=== PATIENT | male | born 1990 | race Caucasian/White ===

== ENCOUNTER 2018-03-11 00:42 | Emergency (ER) | payer MEDICAID ==
[~2018-03-11] VITALS: Ht 170.2 cm; Wt 81.0 kg
[2018-03-11 06:11] LABS: BASOPHILS % 0.6 % (0.0-2.0); EOSINOPHILS % 2.2 % (0.0-5.0); HEMATOCRIT. 42.3 % (42.0-52.0); MEAN CORPUSCULAR HEMOGLOBIN 26.1 pg (28.0-32.0); MEAN CORPUSCULAR VOLUME 78.6 fL (80.0-94.0); MEAN PLATELET VOLUME 7.7 fl (7.4-10.4); MONOCYTES % 4.4 % (2.0-8.0); NEUTROPHILS % 66.8 % (40.0-76.0); PLATELET 214 x1000/uL (130-400); RED BLOOD CELL COUNT 5.38 mill/uL (4.7-6.1); RED CELL DISTRIBUTION WIDTH 15.1 % (11.6-14.6)
[2018-03-11 06:17] LABS: CHLORIDE 107 mEq/L (98-107)
[2018-03-11 06:26] LABS: ETHANOL BLOOD < 10 mg/dL
[2018-03-11 07:34] LABS: *AMPHETAMINES SCREEN URINE NEGATIVE (NEGATIVE); *BARBITURATES SCREEN URINE NEGATIVE (NEGATIVE); CANNABINOID URINE SCREEN NEGATIVE (NEGATIVE); OPIATES URINE SCREEN NEGATIVE (NEGATIVE); PHENCYCLIDINE URINE SCREEN NEGATIVE (NEGATIVE)
[2018-03-11 07:35] LABS: *BENZODIAZEPINES SCREEN URINE NEGATIVE (NEGATIVE); *COCAINE SCREEN URINE NEGATIVE (NEGATIVE); METHADONE URINE SCREEN NEGATIVE (NEGATIVE)
[2018-03-11 10:33] VITALS: BP 123/58
== END 2018-03-11 14:10 | disposition home or self-care (01) ==
LOC: ER 01:01
DX: R45.851 Suicidal ideations (principal); F43.20 Adjustment disorder, unspecified; J45.909 Unspecified asthma, uncomplicated; F31.9 Bipolar disorder, unspecified; I10 Essential (primary) hypertension; F20.9 Schizophrenia, unspecified; Z90.49 Acquired absence of other specified parts of digestive tract
CPT/HCPCS: 36415; 80048; 80305; 80307; 80329; 85025; 99284; G0482

== ENCOUNTER 2019-11-03 19:30 | Emergency (ER) | payer MEDICAID ==
[~2019-11-03] VITALS: Ht 177.8 cm; Wt 82.0 kg
[2019-11-03 22:29] LABS: BASOPHILS % 0.4 % (0.0-2.0); EOSINOPHILS % 3.8 % (0.0-5.0); HEMATOCRIT. 42.7 % (42.0-52.0); HEMOGLOBIN. 14.9 g/dL (14.0-18.0); LYMPHOCYTES % 18.9 % (20.0-50.0); MEAN CORPUSCULAR HEMOGLOBIN 27.4 pg (28.0-32.0); MEAN CORPUSCULAR VOLUME 78.2 fL (80.0-94.0); MEAN PLATELET VOLUME 7.7 fl (7.4-10.4); MONOCYTES % 5.1 % (2.0-8.0); NEUTROPHILS % 71.8 % (40.0-76.0); PLATELET 234 x1000/uL (130-400); RED BLOOD CELL COUNT 5.46 mill/uL (4.7-6.1); RED CELL DISTRIBUTION WIDTH 15.5 % (11.6-14.6)
[2019-11-03 22:32] LABS: CHLORIDE 108 mEq/L (98-107)
[2019-11-03 22:33] LABS: CLARITY URINE CLEAR (CLEAR); COLOR URINE YELLOW (YELLOW); KETONES URINE NEGATIVE (NEGATIVE); LEUKOCYTE ESTERASE URINE NEGATIVE (NEGATIVE); NITRITE URINE NEGATIVE (NEGATIVE); OCCULT BLOOD URINE NEGATIVE (NEGATIVE); PROTEIN URINE NEGATIVE (NEGATIVE); SPECIFIC GRAVITY URINE 1.018 (1.005-1.030)
[2019-11-03 22:36] LABS: ETHANOL BLOOD < 10 mg/dL
[2019-11-03 22:43] LABS: *COCAINE SCREEN URINE NEGATIVE (NEGATIVE)
[2019-11-03 22:44] LABS: *AMPHETAMINES SCREEN URINE NEGATIVE (NEGATIVE); *BARBITURATES SCREEN URINE NEGATIVE (NEGATIVE); *BENZODIAZEPINES SCREEN URINE NEGATIVE (NEGATIVE); CANNABINOID URINE SCREEN NEGATIVE (NEGATIVE); METHADONE URINE SCREEN NEGATIVE (NEGATIVE); OPIATES URINE SCREEN NEGATIVE (NEGATIVE); PHENCYCLIDINE URINE SCREEN NEGATIVE (NEGATIVE)
[2019-11-03] MEDS ORDERED: OLANZAPINE 5MG TABLET ODT PO ONE (23:00)
[2019-11-03] MEDS ORDERED: LORAZEPAM 2MG/ML CPJ IM PRN (23:15)
[2019-11-04] MEDS ORDERED: HALOPERIDOL LACTATE 5MG/ML VIAL IM ONE (07:45)
[2019-11-04] MEDS ORDERED: LORAZEPAM 2MG/ML CPJ IM ONE ×2 (07:45→18:30)
[2019-11-04] MEDS ORDERED: LORAZEPAM 1MG TABLET PO ONE (15:00)
[2019-11-04] MEDS ORDERED: ALBUTEROL 6.7GM HFA INHALER ORI ONE (18:00)
[2019-11-04 20:36] VITALS: BP 129/75
[2019-11-04] MEDS ORDERED: QUETIAPINE FUMARATE 50MG TABLET PO SCH (21:00)
[2019-11-05] MEDS ORDERED: BUSPIRONE HCL 5MG TABLET PO SCH (09:00)
== END 2019-11-04 20:37 ==
LOC: ER 19:30
DX: F20.9 Schizophrenia, unspecified (principal); R45.851 Suicidal ideations; R45.850 Homicidal ideations; J45.909 Unspecified asthma, uncomplicated; I10 Essential (primary) hypertension; Z75.1 Person awaiting admission to adequate facility elsewhere; Z91.14 Patient's other noncompliance with medication regimen; Z90.49 Acquired absence of other specified parts of digestive tract
CPT/HCPCS: 36415; 80053; 80305; 80320; 81003; 85025; 94640; 96372; 99285; J2060; G0480

== ENCOUNTER 2020-05-25 00:30 | Emergency (ER) | payer MEDICAID ==
[~2020-05-25] VITALS: Ht 172.7 cm; Wt 82.0 kg
[2020-05-25 01:32] LABS: BASOPHILS % 0.7 % (0.0-2.0); EOSINOPHILS % 5.4 % (0.0-5.0); HEMATOCRIT. 43.9 % (42.0-52.0); HEMOGLOBIN. 14.9 g/dL (14.0-18.0); LYMPHOCYTES % 19.1 % (20.0-50.0); MEAN CORPUSCULAR VOLUME 76.5 fL (80.0-94.0); MEAN PLATELET VOLUME 7.3 fl (7.4-10.4); MONOCYTES % 5.4 % (2.0-8.0); NEUTROPHILS % 69.4 % (40.0-76.0); PLATELET 233 x1000/uL (130-400); RED BLOOD CELL COUNT 5.73 mill/uL (4.7-6.1); RED CELL DISTRIBUTION WIDTH 15.3 % (11.6-14.6)
[2020-05-25 01:36] LABS: CHLORIDE 109 mEq/L (98-107)
[2020-05-25 01:41] LABS: ETHANOL BLOOD < 10 mg/dL
[2020-05-25 02:22] LABS: CLARITY URINE CLEAR (CLEAR); COLOR URINE YELLOW (YELLOW); KETONES URINE NEGATIVE (NEGATIVE); LEUKOCYTE ESTERASE URINE NEGATIVE (NEGATIVE); NITRITE URINE NEGATIVE (NEGATIVE); OCCULT BLOOD URINE NEGATIVE (NEGATIVE); PH URINE 5.5 (4.5-8.0); PROTEIN URINE NEGATIVE (NEGATIVE); SPECIFIC GRAVITY URINE 1.024 (1.005-1.030)
[2020-05-25 02:34] LABS: *AMPHETAMINES SCREEN URINE NEGATIVE (NEGATIVE); *BARBITURATES SCREEN URINE NEGATIVE (NEGATIVE); *BENZODIAZEPINES SCREEN URINE NEGATIVE (NEGATIVE); *COCAINE SCREEN URINE NEGATIVE (NEGATIVE); CANNABINOID URINE SCREEN NEGATIVE (NEGATIVE); METHADONE URINE SCREEN NEGATIVE (NEGATIVE); OPIATES URINE SCREEN NEGATIVE (NEGATIVE); PHENCYCLIDINE URINE SCREEN NEGATIVE (NEGATIVE)
[2020-05-25] MEDS ORDERED: IPRATROPIUM/ALBUTEROL 0.5-3(2.5)MG/3ML NEB HHN ONE (04:15)
[2020-05-25] MEDS ORDERED: RISPERIDONE 1MG TABLET PO SCH (09:00)
[2020-05-25 11:00] VITALS: BP 111/60
== END 2020-05-25 11:28 | disposition home or self-care (01) ==
LOC: ER 00:30
DX: R45.851 Suicidal ideations (principal); F20.9 Schizophrenia, unspecified; F31.9 Bipolar disorder, unspecified; F15.10 Other stimulant abuse, uncomplicated; I10 Essential (primary) hypertension; J45.909 Unspecified asthma, uncomplicated; Z90.49 Acquired absence of other specified parts of digestive tract; Z20.822 Contact with and (suspected) exposure to COVID-19; R05 Cough
CPT/HCPCS: 36415; 80053; 80305; 80307; 80320; 80329; 81003; 85025; 93005; 94640; 99285; C9803; U0003; Z7610; A4315; G0480

== ENCOUNTER 2022-05-21 08:37 | Emergency (ER) | payer MEDICAID ==
[~2022-05-21] VITALS: Ht 175.3 cm; Wt 91.0 kg
[2022-05-21 11:48] LABS: BASOPHILS % 0.5 % (0.0-2.0); EOSINOPHILS % 1.1 % (0.0-5.0); HEMATOCRIT. 41.5 % (42.0-52.0); HEMOGLOBIN. 13.8 g/dL (14.0-18.0); LYMPHOCYTES % 15.3 % (20.0-50.0); MEAN CORPUSCULAR VOLUME 78.4 fL (80.0-94.0); MEAN PLATELET VOLUME 7.4 fl (7.4-10.4); MONOCYTES % 5.6 % (2.0-8.0); NEUTROPHILS % 77.5 % (40.0-76.0); PLATELET 252 x1000/uL (130-400); RED BLOOD CELL COUNT 5.29 mill/uL (4.7-6.1); RED CELL DISTRIBUTION WIDTH 15.9 % (11.6-14.6)
[2022-05-21 11:51] LABS: CLARITY URINE CLEAR (CLEAR); COLOR URINE YELLOW (YELLOW); KETONES URINE NEGATIVE (NEGATIVE); LEUKOCYTE ESTERASE URINE 1+ (NEGATIVE); NITRITE URINE NEGATIVE (NEGATIVE); OCCULT BLOOD URINE NEGATIVE (NEGATIVE); PH URINE 6.5 (4.5-8.0); PROTEIN URINE NEGATIVE (NEGATIVE); SPECIFIC GRAVITY URINE 1.019 (1.005-1.030)
[2022-05-21 11:51] LABS: CHLORIDE 111 mEq/L (98-107)
[2022-05-21 12:00] LABS: ETHANOL BLOOD < 10 mg/dL
[2022-05-21 12:06] LABS: *AMPHETAMINES SCREEN URINE NEGATIVE (NEGATIVE); *BARBITURATES SCREEN URINE NEGATIVE (NEGATIVE); *BENZODIAZEPINES SCREEN URINE NEGATIVE (NEGATIVE); *COCAINE SCREEN URINE NEGATIVE (NEGATIVE); CANNABINOID URINE SCREEN NEGATIVE (NEGATIVE); METHADONE URINE SCREEN NEGATIVE (NEGATIVE); OPIATES URINE SCREEN NEGATIVE (NEGATIVE); PHENCYCLIDINE URINE SCREEN NEGATIVE (NEGATIVE)
[2022-05-21] MEDS: SERTRALINE HCL 100MG TABLET PO SCH (13:00)
[2022-05-21] MEDS ORDERED: QUETIAPINE FUMARATE 25MG TABLET PO SCH (21:00)
[2022-05-22] MEDS: SERTRALINE HCL 100MG TABLET PO SCH (08:52)
[2022-05-22 09:43] VITALS: BP 107/67
== END 2022-05-22 10:18 | disposition home or self-care (01) ==
LOC: ER 08:37
DX: R45.851 Suicidal ideations (principal); R45.850 Homicidal ideations; J45.909 Unspecified asthma, uncomplicated; F31.9 Bipolar disorder, unspecified; I10 Essential (primary) hypertension; F20.9 Schizophrenia, unspecified; Z90.49 Acquired absence of other specified parts of digestive tract; F12.10 Cannabis abuse, uncomplicated; Z20.822 Contact with and (suspected) exposure to COVID-19
CPT/HCPCS: 36415; 71045; 80053; 80305; 80320; 81003; 85025; 87426; 99285; C9803; G0480

== ENCOUNTER 2023-01-30 12:32 | Emergency (ER) | payer MEDICAID, OTHER ==
[~2023-01-30] VITALS: Ht 177.8 cm; Wt 82.0 kg
[2023-01-30 12:37] VITALS: BP 126/78; PULSE 103; RESP 16; TEMP 98.3; O2SAT 96
[2023-01-30] MEDS ORDERED: SERTRALINE HCL 100MG TABLET PO SCH (15:00)
[2023-01-30] MEDS ORDERED: ALBU6.7H15 INH (15:10)
[2023-01-30] MEDS ORDERED: QUET300T2 PO (15:10)
[2023-01-30] MEDS ORDERED: QUET200T MT (15:10)
[2023-01-30] MEDS ORDERED: AMLO10TA80 PO (17:24)
[2023-01-30] MEDS ORDERED: ASPI-1406 PO (17:24)
[2023-01-30] MEDS ORDERED: SERT-422 PO (17:24)
[2023-01-30] MEDS ORDERED: LISI20TA31 PO (17:24)
[2023-01-30] MEDS ORDERED: TRAZ-251 PO (17:24)
[2023-01-30] MEDS ORDERED: RISP2TAB85 PO (17:24)
[2023-01-30] MEDS ORDERED: ALBU2.5V13 NEB (17:24)
[2023-01-30] MEDS ORDERED: QUETIAPINE FUMARATE 50MG TABLET PO SCH (21:00)
== END 2023-01-30 15:11 | disposition home or self-care (01) ==
LOC: ER 12:32
DX: F20.9 Schizophrenia, unspecified (principal); J45.909 Unspecified asthma, uncomplicated; F41.9 Anxiety disorder, unspecified; F31.9 Bipolar disorder, unspecified; I10 Essential (primary) hypertension; F12.90 Cannabis use, unspecified, uncomplicated; F10.90 Alcohol use, unspecified, uncomplicated; Z90.49 Acquired absence of other specified parts of digestive tract
CPT/HCPCS: 99283

== ENCOUNTER 2023-06-18 00:45 | Emergency (ER) | payer MEDICAID, OTHER ==
[~2023-06-18] VITALS: Ht 177.8 cm; Wt 95.0 kg
[~2023-06-18 00:45] MED LIST: ALBU2.5V13 NEB; ALBU6.7H15 INH; AMLO10TA80 PO; ASPI-1406 PO; LISI20TA31 PO; QUET200T MT; QUET300T2 PO; RISP2TAB85 PO; SERT-422 PO; TRAZ-251 PO
[2023-06-18 01:01] LABS: HEMATOCRIT. 40.9 % (42.0-52.0); HEMOGLOBIN. 13.8 g/dL (14.0-18.0); MEAN CORPUSCULAR HEMOGLOBIN 27.7 pg (28.0-32.0); MEAN CORPUSCULAR HGB CONC 33.8 g/dL (31.0-37.0); MEAN CORPUSCULAR VOLUME 82.1 fL (80.0-94.0); MEAN PLATELET VOLUME 7.3 fl (7.4-10.4); PLATELET 262 x1000/uL (130-400); RED BLOOD CELL COUNT 4.98 mill/uL (4.7-6.1); RED CELL DISTRIBUTION WIDTH 15.1 % (11.6-14.6); WHITE BLOOD COUNT 8.4 x1000/uL (4.5-11.0)
[2023-06-18 01:10] LABS: DIFFERENTIAL COMMENT 1
[2023-06-18 01:15] LABS: ACETAMINOPHEN < 2 ug/mL (10-30); ALANINE AMINOTRANSFERASE 18 IU/L (10-49); ALBUMIN 4.6 g/dL (3.2-4.8); ASPARTATE AMINOTRANSFERASE 16 IU/L (<34); BILIRUBIN TOTAL 0.4 mg/dL (0.1-1.0); CALCIUM 9.4 mg/dL (8.7-10.4); CARBON DIOXIDE 25 mEq/L (21-32); CHLORIDE 106 mEq/L (98-107); CREATININE 0.8 mg/dL (0.6-1.3); GLUCOSE 108 mg/dL (70-105); POTASSIUM 4.2 mEq/L (3.5-5.1); SODIUM 139 mEq/L (136-145); UREA NITROGEN BLOOD 17 mg/dL (9-23)
[2023-06-18 01:31] LABS: PLATELET ESTIMATE NORMAL
[2023-06-18 01:40] LABS: CLARITY URINE CLEAR (CLEAR); COLOR URINE YELLOW (YELLOW); GLUCOSE URINE NEGATIVE (NEGATIVE); KETONES URINE NEGATIVE (NEGATIVE); LEUKOCYTE ESTERASE URINE NEGATIVE (NEGATIVE); NITRITE URINE NEGATIVE (NEGATIVE); OCCULT BLOOD URINE NEGATIVE (NEGATIVE); PROTEIN URINE NEGATIVE (NEGATIVE); SPECIFIC GRAVITY URINE 1.017 (1.005-1.030)
[2023-06-18 01:43] LABS: ETHANOL BLOOD < 10 mg/dL (<10)
[2023-06-18] MEDS: ALBUTEROL (0.083%) 2.5MG/3ML NEB HHN ONE (01:45)
[2023-06-18 01:50] LABS: *AMPHETAMINES SCREEN URINE NEGATIVE (NEGATIVE); *BARBITURATES SCREEN URINE NEGATIVE (NEGATIVE); *BENZODIAZEPINES SCREEN URINE NEGATIVE (NEGATIVE); *COCAINE SCREEN URINE NEGATIVE (NEGATIVE); CANNABINOID URINE SCREEN NEGATIVE (NEGATIVE); ECSTASY MDMA SCREEN URINE NEGATIVE (NEGATIVE); METHADONE URINE SCREEN Neg (NEGATIVE); OPIATES URINE SCREEN NEGATIVE (NEGATIVE); PHENCYCLIDINE URINE SCREEN NEGATIVE (NEGATIVE)
[2023-06-18] MEDS: ALBUTEROL (0.083%) 2.5MG/3ML NEB HHN STA (08:36)
[2023-06-18] MEDS: IPRATROPIUM BROMIDE (0.02%) 0.5MG/2.5ML NEB HHN STA (08:38)
[2023-06-18 08:40] VITALS: PULSE 50; RESP 18; O2SAT 98
[2023-06-18 09:06] VITALS: PULSE 50; RESP 18; O2SAT 98
[2023-06-18] MEDS: OLANZAPINE 10MG TABLET PO SCH (09:32)
[2023-06-18 10:00] VITALS: BP 123/64; PULSE 50; RESP 18; TEMP 98.4
== END 2023-06-18 11:30 | disposition home or self-care (01) ==
LOC: ER 00:45
DX: R45.851 Suicidal ideations (principal); F41.9 Anxiety disorder, unspecified; J45.909 Unspecified asthma, uncomplicated; F31.9 Bipolar disorder, unspecified; I10 Essential (primary) hypertension; F20.9 Schizophrenia, unspecified; F12.10 Cannabis abuse, uncomplicated; Z20.822 Contact with and (suspected) exposure to COVID-19
CPT/HCPCS: 80053; 80305; 81003; 80307; 80329; 80320; 85025; 36415; 94640; 99285; 87426; Z7610 ×3; G0480

== ENCOUNTER 2024-10-21 10:55 | Emergency (ER) | payer MEDICAID ==
[~2024-10-21] VITALS: Ht 175.3 cm; Wt 96.0 kg
[~2024-10-21 10:55] MED LIST changes: +RISP-29 PO; -RISP2TAB85 PO
[2024-10-21] MEDS: PREDNISONE 20MG TABLET PO STA (11:18)
[2024-10-21] MEDS: ALBUTEROL (0.083%) 2.5MG/3ML NEB HHN STA (11:31)
[2024-10-21] MEDS: IPRATROPIUM BROMIDE (0.02%) 0.5MG/2.5ML NEB HHN STA (11:31)
[2024-10-21] MEDS ORDERED: ALBU90AE INH (11:37)
[2024-10-21] MEDS ORDERED: P50 PO (11:37)
[2024-10-21 11:42] VITALS: PULSE 72; RESP 22; O2SAT 99
[2024-10-21 12:50] VITALS: BP 112/68; PULSE 77; RESP 18; TEMP 36.7; O2SAT 100
== END 2024-10-21 12:52 | disposition home or self-care (01) ==
LOC: ER 10:55
DX: J45.901 Unspecified asthma with (acute) exacerbation (principal); F41.9 Anxiety disorder, unspecified; F20.9 Schizophrenia, unspecified; I10 Essential (primary) hypertension; F31.9 Bipolar disorder, unspecified; F12.90 Cannabis use, unspecified, uncomplicated; Z90.49 Acquired absence of other specified parts of digestive tract; Z79.899 Other long term (current) drug therapy; Z79.82 Long term (current) use of aspirin; Z79.52 Long term (current) use of systemic steroids
CPT/HCPCS: 98960; 94644; 99285; J7512; Z7610; 94070; 94640; 94664; 94760